=== PATIENT | female | born 1965 ===

== ENCOUNTER 2025-05-28 07:00 | Day surgery (SDC) | payer OTHER ==
[2025-05-20 07:45] VITALS: BP 146/83
[2025-05-20 08:01] LABS: BASO % 0.5 % (0.1-1.2); EOS # 0.23 (0.04-0.54); EOS % 2.9 % (0.7-7.0); LYMPH # 3.19 (1.18-3.74); LYMPH % 40.2 % (19.3-53.1); MEAN PLATELET VOLUME 10.60 fl (9.4-12.4); MONO # 0.61 (0.24-0.82); MONO % 7.7 % (4.7-12.5); NEUT # 3.82 (1.56-6.13); NEUT % 48.2 % (34.0-71.1); RED CELL DISTRIBUTION WIDTH 14.6 % (11.6-14.4)
[2025-05-20 08:07] LABS: URINE APPEARANCE Clear; URINE BILIRRUBIN Negative (NEGATIVE); URINE BLOOD Negative; URINE COLOR Yellow; URINE GLUCOSE Negative (NEGATIVE); URINE KETONE Negative (NEGATIVE); URINE LEUKOCYTE Trace; URINE NITRATE Negative; URINE PROTEIN Trace (NEGATIVE); URINE UROBILINOGEN 1.0 E.U./dl
[2025-05-20 08:11] LABS: URINE BACTERIA 293.9 uL (0.0-1933); URINE EPITHELIAL CELLS 15.1 uL (0.0-38.8); URINE RBC 9.4 uL (0.0-20.8); URINE WBC 1.8 uL (0.0-23.2)
[2025-05-20 08:14] LABS: URINE CAST 0.00 uL (0.0-1.40)
[2025-05-20 08:30] LABS: INR 0.97
[2025-05-20 09:34] LABS: ALT/SGPT 24.0 U/L (12-78); AST/SGOT 13.0 U/L (15-37); BILIRUBIN TOTAL 0.29 mg/dL (0.3-1.2); BUN CREA RATIO 27.0 (7.0-25.0); CREATININE SERUM 0.62 mg/dL (0.55-1.02); GFR 97.86; GLOBULINA 4.0 G/DL (2.4-3.5); GLUCOSE FASTING 86.0 mg/dL (65-100); OSMOLALITY SERUM 288.0 MOSM/KG (275-295)
[~2025-05-28] VITALS: Ht 167.6 cm; Wt 68.0 kg
[~2025-05-28 07:00] MED LIST: ALBUTEROL0.63 MG/3; ATORVASTATIN CA10 MG PO; CEFAZOLIN SODIUM 1,000 MG VIAL ONE; MELOXICAM15 MG PO; METFORMIN HCL500 M3 PO; TESSALON; TUSSIN
[2025-05-28] MEDS ORDERED: BUPIVACAINE HCL/MPF 0.5% 30ML VIAL ONE (07:01)
== END 2025-05-28 10:15 | disposition home or self-care (01) ==
LOC: CIR.AMB 07:00
PROVIDERS: ATTEND Orthopaedic Surgery Hand Surgery
DX: G56.02 Carpal tunnel syndrome, left upper limb (principal)